=== PATIENT | male | born 1940 | race Caucasian/White ===

== ENCOUNTER 2020-03-27 20:57 | Observation (INO) ==
[2020-03-27] MEDS ORDERED: 0.9 % Sodium Chloride 1,000 ML IVC ONE (21:04)
[2020-03-27] MEDS ORDERED: 0.9 % Sodium Chloride 2,000 ML IV ONE (21:32)
[2020-03-27 22:05] LABS: Basophils % 0.2 %; Eosinophils % 0.2 %; Immature Granulocytes % 0.4 % (0-4); Lymphocytes # 0.9 K/mcL (0.6-4.6); Lymphocytes % 6.5 %; Mean Corpuscular HGB Conc 32.4 g/dL (31.6-35.5); Mean Corpuscular Hemoglobin 29.7 pg (28.0-33.3); Mean Corpuscular Volume 91.6 fL (83.0-100.0); Mean Platelet Volume 11.3 fL (9.4-12.4); Monocytes % 7.1 %; Neutrophils # 11.4 K/mcL (1.6-8.9); Platelet Count 147 K/mcL (140-400); Red Blood Count 4.04 M/mcL (4.19-5.50); Red Cell Distribution Width 12.8 % (11.5-14.5); Segmented Neutrophils % 85.6 %; White Blood Count 13.3 K/mcL (4.3-11.1)
[2020-03-27] MEDS ORDERED: Isovue-370 500 ML BOTTLE IVP ONE (22:09)
[2020-03-27 22:17] LABS: Clarity,Urine Cloudy (Clear); Color,Urine Orange (Yellow)
[2020-03-27 22:20] LABS: Bacteria,Urine Few per hpf (None-Few); RBC,Urine TNTC per hpf (0-3); WBC,Urine 50-100 per hpf (0-3)
[2020-03-27 22:37] LABS: Albumin/Globulin Ratio 1.7 (1.1-2.2); Bilirubin,Total 0.6 mg/dL (0.3-1.0); Calcium 9.2 mg/dL (8.6-10.3); Globulin 2.4 g/dL (2.4-3.5); Potassium 4.4 mEq/L (3.5-5.1); Total Protein 6.4 g/dL (6.4-8.9)
[2020-03-27] MEDS ORDERED: cefTRIAXone 1,000 MG in Water for inj. (sterile) 10 ML IVP ONE (23:07)
[2020-03-28] MEDS ORDERED: 0.9 % Sodium Chloride 1,000 ML IV ONE
[2020-03-28] MEDS ORDERED: Lidocaine Jelly 11 ml Syringe TP ONE (02:20)
[2020-03-28] MEDS ORDERED: Lidocaine Jelly 11 ml Syringe ONE (02:24)
[2020-03-28] MEDS ORDERED: Naloxone 0.4 MG/ML INJ IVP PRN (03:39)
[2020-03-28] MEDS ORDERED: 0.9 % Sodium Chloride 1,000 ML IVC SCH (03:45)
[2020-03-28 05:24] LABS: Basophils % 0.2 %; Eosinophils % 0.1 %; Hematocrit 31.1 % (37.5-50.1); Immature Granulocytes % 0.7 % (0-4); Lymphocytes # 1.9 K/mcL (0.6-4.6); Lymphocytes % 11.3 %; Mean Corpuscular HGB Conc 32.2 g/dL (31.6-35.5); Mean Corpuscular Hemoglobin 29.9 pg (28.0-33.3); Mean Corpuscular Volume 93.1 fL (83.0-100.0); Mean Platelet Volume 11.5 fL (9.4-12.4); Monocytes # 1.6 K/mcL (0.0-1.3); Monocytes % 9.8 %; Neutrophils # 12.8 K/mcL (1.6-8.9); Platelet Count 128 K/mcL (140-400); Red Blood Count 3.34 M/mcL (4.19-5.50); Red Cell Distribution Width 13.1 % (11.5-14.5); Segmented Neutrophils % 77.9 %; White Blood Count 16.4 K/mcL (4.3-11.1)
[2020-03-28 05:37] LABS: INR 1.1; Prothrombin Time 12.4 Seconds (9.4-12.1)
[2020-03-28 05:39] LABS: Activated Partial Thrombo Time 26.5 Seconds (26.0-36.0)
[2020-03-28 05:43] LABS: Albumin 3.1 g/dL (3.5-5.7); Albumin/Globulin Ratio 1.7 (1.1-2.2); Bilirubin,Total 0.3 mg/dL (0.3-1.0); Calcium 7.8 mg/dL (8.6-10.3); Globulin 1.8 g/dL (2.4-3.5); Potassium 5.1 mEq/L (3.5-5.1); Total Protein 4.9 g/dL (6.4-8.9)
[2020-03-28] MEDS ORDERED: Vancomycin 1,500 MG/265 ML IV.SOLN IVPB ONE (06:00)
[2020-03-28] MEDS: Piperacillin/Tazobactam 3.375 GM in 0.9 % Sodium Chloride Mini Bag 100 ML IVPB SCH ×2 (08:54→20:18)
[2020-03-28] MEDS: Aspirin Enteric Coated 81 MG Tablet PO SCH (08:54)
[2020-03-28] MEDS ORDERED: D5% in Water 1,000 ML IVC PRN (14:11)
[2020-03-28] MEDS ORDERED: Dextrose Gel 15 GM/37.5 ML TUBE PO PRN ×2 (14:11)
[2020-03-28] MEDS ORDERED: *HR* Dextrose 50 % in Water (Vial) 50 ML VIAL IVP PRN (14:11)
[2020-03-28] MEDS: Insulin LISPRO 300 UNITS/3 ML VIAL SQ SCH (16:23)
[2020-03-28] MEDS ORDERED: cefTRIAXone 2,000 MG in 0.9 % Sodium Chloride Mini Bag 100 ML IVPB SCH (18:00)
[2020-03-28] MEDS ORDERED: Insulin DETEMIR 100 UNIT/ML X5UNITS SQ SCH (21:00)
[2020-03-28] MEDS ORDERED: Gabapentin 300 MG CAPSULE PO SCH (21:00)
[2020-03-29 06:14] LABS: Hematocrit 33.1 % (37.5-50.1); Hemoglobin 10.3 g/dL (12.9-16.9); Mean Corpuscular HGB Conc 31.1 g/dL (31.6-35.5); Mean Corpuscular Hemoglobin 28.9 pg (28.0-33.3); Mean Corpuscular Volume 92.7 fL (83.0-100.0); Mean Platelet Volume 11.5 fL (9.4-12.4); Platelet Count 129 K/mcL (140-400); Red Blood Count 3.57 M/mcL (4.19-5.50); Red Cell Distribution Width 13.2 % (11.5-14.5); White Blood Count 10.3 K/mcL (4.3-11.1)
[2020-03-29 06:52] LABS: Calcium 8.5 mg/dL (8.6-10.3); Potassium 4.3 mEq/L (3.5-5.1)
[2020-03-29] MEDS ORDERED: Vancomycin 500 MG in 0.9 % Sodium Chloride Mini Bag 100 ML IVPB ONE (07:00)
[2020-03-29] MEDS: Piperacillin/Tazobactam 3.375 GM in 0.9 % Sodium Chloride Mini Bag 100 ML IVPB SCH (08:34)
[2020-03-29] MEDS: Aspirin Enteric Coated 81 MG Tablet PO SCH (08:35)
[2020-03-29] MEDS: Insulin LISPRO 300 UNITS/3 ML VIAL SQ SCH ×2 (08:35→11:39)
[2020-03-29] MEDS ORDERED: Vancomycin 1,500 MG/265 ML IV.SOLN IVPB SCH (09:00)
[2020-03-29 15:55] VITALS: BP 139/84
[2020-03-30] MEDS ORDERED: Cyanocobalamin (B-12) 1,000 MCG TABLET PO SCH (09:00)
[2020-03-30] MEDS ORDERED: Finasteride 5 MG TABLET PO SCH (09:00)
== END 2020-03-29 16:25 | disposition home or self-care (01) ==
LOC: 2NNU 20:57 → EMEROOARM 20:57 → SUATTDRO 03-28 02:01 → 2NNU 03-28 03:12
PROVIDERS: ADMIT Internal Medicine; ATTEND Internal Medicine